=== PATIENT | male | born 1990 | race Caucasian/White ===

== ENCOUNTER 2017-08-30 13:11 | Emergency (ER) | payer OTHER ==
[~2017-08-30] VITALS: Ht 180.3 cm; Wt 83.9 kg
[2017-08-30 13:30] VITALS: BP 122/78
[2017-08-30] MEDS ORDERED: KETOROLAC TROMETH 60MG/2ML VIAL IM ONE (14:00)
== END 2017-08-30 14:25 | disposition home or self-care (01) ==
LOC: ER 13:11
DX: M54.16 Radiculopathy, lumbar region (principal); R53.1 Weakness
CPT/HCPCS: 96372; 99283; J1885

== ENCOUNTER 2020-06-04 15:48 | Emergency (ER) | payer OTHER ==
[~2020-06-04] VITALS: Ht 180.3 cm; Wt 83.9 kg
[2020-06-04 19:53] VITALS: BP 111/76
== END 2020-06-04 21:35 | disposition home or self-care (01) ==
LOC: ER 15:48
DX: S63.602A Unspecified sprain of left thumb, initial encounter (principal); W01.0XXA Fall on same level from slipping, tripping and stumbling without subsequent striking against object, initial encounter; Y93.89 Activity, other specified; Y92.89 Other specified places as the place of occurrence of the external cause; Y99.8 Other external cause status
CPT/HCPCS: 73130

== ENCOUNTER 2021-03-12 18:06 | Emergency (ER) | payer OTHER ==
[~2021-03-12] VITALS: Ht 180.3 cm; Wt 86.2 kg
[2021-03-12] MEDS ORDERED: KETOROLAC TROMETH 30 MG/ML 1ML VIAL IV ONE (19:15)
[2021-03-12 21:45] VITALS: BP 135/72
== END 2021-03-12 22:25 | disposition home or self-care (01) ==
LOC: ER 18:06
DX: R07.89 Other chest pain (principal)
CPT/HCPCS: 71046; 93005

== ENCOUNTER 2022-05-28 10:48 | Emergency (ER) | payer OTHER ==
[~2022-05-28] VITALS: Ht 180.3 cm; Wt 86.5 kg
[2022-05-28 11:00] VITALS: BP 134/86
[2022-05-28 11:27] LABS: Basophils # (auto) 0 10 ^3/uL (0-0.2); Basophils % (auto) 0.3 % (0.0-2.0); Eosinophils # (auto) 0 10 ^3/uL (0-0.8); Hematocrit 44.2 % (41.0-53.0); Hemoglobin 15.5 g/dL (13.5-17.5); Lymphocytes # (auto) 0.6 10 ^3/uL (0.4-5.4); Lymphocytes % (auto) 7.3 % (10.0-50.0); Mean Corpuscular Hemoglobin 30.9 pg (28.0-32.0); Mean Corpuscular Volume 88.1 fL (80.0-100.0); Monocytes # (auto) 0.7 10 ^3/uL (0-1.3); Monocytes % (auto) 7.6 % (0.0-12.0); Neutrophils # (auto) 7.3 10 ^3/uL (1.6-8.6); Neutrophils % (auto) 84.8 % (37.0-80.0); Red Blood Cells 5.01 10^6/uL (4.5-5.90); Red Cell Distribution Width 14.2 % (11.8-14.3); White Blood Cell 8.6 10^3/uL (4.4-10.8)
[2022-05-28 11:49] LABS: Calcium 8.3 mg/dL (8.5-10.1); Potassium 3.7 mmol/L (3.5-5.1)
[2022-05-28 11:52] LABS: BUN/Creatinine Ratio 9.6; Bilirubin, Total 1.2 mg/dL (0.2-1.0); Total Protein 7.8 g/dL (6.4-8.2)
[2022-05-28] MEDS ORDERED: HYDROcodone-ACET 5/325MG TAB PO ONE (13:30)
[2022-05-28] MEDS ORDERED: IOHEXOL 350 MG/ML 100ML IJ ONE (13:33)
[2022-05-28] MEDS ORDERED: IBU600T PO (15:56)
[2022-05-28] MEDS ORDERED: CLIN300C8 PO (17:54)
[2022-05-28] MEDS ORDERED: CEPH-510 PO (17:54)
== END 2022-05-28 17:40 | disposition home or self-care (01) ==
LOC: ER 10:48
DX: S76.911A Strain of unspecified muscles, fascia and tendons at thigh level, right thigh, initial encounter (principal); X58.XXXA Exposure to other specified factors, initial encounter; Y93.89 Activity, other specified; Y92.89 Other specified places as the place of occurrence of the external cause; Y99.8 Other external cause status
CPT/HCPCS: 36415; 71045; 71275; 80053; 85025; 85379; 93971; 99285; Q9967